=== PATIENT | female | born 1985 | race American Indian/Alaskan Native ===

== ENCOUNTER 2018-05-02 01:32 | Inpatient (IN) | payer SELFPAY ==
[2018-05-02] MEDS ORDERED: BICITRA PO ONE (01:45)
[2018-05-02] MEDS ORDERED: REGLAN IV ONE (01:45)
[2018-05-02] MEDS ORDERED: PEPCID IV ONE (01:45)
[2018-05-02] MEDS ORDERED: APRESOLINE IV PRN (01:49)
[2018-05-02] MEDS ORDERED: NORMODYNE IV ONE (01:49)
[2018-05-02] MEDS ORDERED: APRESOLINE ONE (01:52)
[2018-05-02] MEDS ORDERED: ANCEF/STERILE WATER 2 GM/20 ML 2 GM/20 ML SYRINGE IV NR (02:00)
[2018-05-02] MEDS ORDERED: LACTATED RINGERS 1,000 ML IV SCH ×2 (02:00)
[2018-05-02] MEDS ORDERED: PITOCin/NS 20 UNIT/1000ML DRIP 20 UNITS/1,000 ML BAG IV SCH ×2 (02:00→11:08)
[2018-05-02 02:16] LABS: Basophils # (Auto) 0.1 K/mm3 (0.0-0.1); Basophils % (Auto) 1.4 % (0.0-1.8); Eosinophils # (Auto) 0.1 K/mm3 (0.0-0.4); Hematocrit 44.5 % (30.3-42.9); Hemoglobin 14.5 gm/dl (10.1-14.3); Lymphocytes # (Auto) 2.6 K/mm3 (1.2-5.4); Lymphocytes % (Auto) 27.1 % (13.4-35.0); Mean Corpuscular HGB Conc 33 % (30-34); Mean Corpuscular Volume 70 fl (79-97); Monocytes # (Auto) 0.8 K/mm3 (0.0-0.8); Monocytes % (Auto) 8.2 % (0.0-7.3); Red Blood Count 6.34 M/mm3 (3.65-5.03); Red Cell Distribution Width 14.1 % (13.2-15.2)
[2018-05-02 02:20] LABS: Platelet Count 250 K/mm3 (140-440)
[2018-05-02 02:36] LABS: BUN/Creatinine Ratio 12; Blood Urea Nitrogen 7 mg/dL (7-17); Calcium 9.1 mg/dL (8.4-10.2); Hemolysis Index 128
[2018-05-02 02:46] LABS: Hepatitis C Virus Antibody Non-Reactive (NonReactive)
--- NOTE | 2018-05-02 02:46 | Ultrasound Report ---
FINAL REPORT PROCEDURE: US OB FOLLOW UP TECHNIQUE: Real-time limited sonographic examination was performed for evaluation of size, pos ition, heartbeat, fluid volume for each fetus with image documentation (1 or more fetuses). CPT 7681 5 HISTORY: efw, placentation, presentation COMPARISON: No prior studies are available for comparison. FINDINGS: MATERNAL Uterus: Within normal limits . Internal Os: Closed . FETUS IUP: Single living intrauterine . Position: Cephalic. Placental position: Anteriorly, without previa . Amniotic fluid volume: Normal . Heart rate and rhythm: 119 BPM, Regular . anatomic survey: Not performed on this study. MEASUREMENTS BPD: 9 centimeters. HC: 33.7 centimeter. AC: 34.1 centimeters. FL: 7.3 centimeter. Mean Gestational Age (composite criteria): 37 weeks 5 days. Ratio biometry: Normal . Estimated Weight: 3005 grams. Interval growth: No prior study. Estimated Due Date (earliest scan): 05/18/2018. IMPRESSION: 1. Single living intrauterine gestation at approximately 37 weeks 3 days. 2. EDC by US 05/18/2018.
[2018-05-02] MEDS ORDERED: NARCAN 2 MG/2 ML IV PRN (03:28)
[2018-05-02] MEDS ORDERED: METHERGINE IM ONE (03:30)
--- NOTE | 2018-05-02 03:30 | Anesthesia Day of Surgery ---
Anesthesia Day of Surgery - Day of Surgery Patient Examined: Yes Patient H&P Reviewed: Yes Patient is NPO: Yes Beta Blockers: No Cardiac Clearance: No Pulmonary Clearance: No Blaine's Test: N/A
--- NOTE | 2018-05-02 03:30 | Anesthesia Consultation ---
Anesthesia Consult and Med Hx - Airway Anesthetic Teeth Evaluation: Good ROM Head & Neck: Adequate Mental/Hyoid Distance: Adequate Mallampati Class: Class II Intubation Access Assessment: Probably Good - Pulmonary Exam CTA: Yes - Cardiac Exam Cardiac Exam: No Murmur - Pre-Operative Health Status ASA Pre-Surgery Classification: ASA3, Emergency Proposed Anesthetic Plan: Epidural
[2018-05-02] MEDS ORDERED: CYTOTEC ONE (03:31)
--- NOTE | 2018-05-02 03:45 | History and Physical Report ---
History of Present Illness Date of examination: 05/02/18 Date of admission: 05/02/18 02:48 Chief complaint: my water broke History of present illness: Pt is a 32 year old female BUTCH 05/18/18 by ultrasound today in triage at 37w5d who presents with rupture of membranes just after midnight. She reports irregular contractions. She has had no care for this . While being evaluated in triage, the patient noted headache and blood pressures 180/110s. She does have a history of one prior section. Past History Past Medical History: no pertinent history Past Surgical History: section Social history: no significant social history - Obstetrical History Expected Date of Delivery: 05/18/18 Actual Gestation: 37 Week(s) 5 Day(s) : 5 Para: 2 Hx # Term Pregnancies: 2 Number of Pregnancies: 0 Spontaneous Abortions: 2 Induced : 0 Number of Living Children: 2 Medications and Allergies Allergies Allergy/AdvReac Type Severity Reaction Status Date / Time No Known Allergies Allergy Verified 05/02/18 02:09 Active Meds: Active Medications Ephedrine Sulfate (Ephedrine Sulfate) 10 mg IV Q2M PRN PRN Reason: Hypotension Hydralazine HCl (Apresoline) 5 mg IV Q30MIN PRN PRN Reason: Hypertension Lactated Ringer's (Lactated Ringers) 1,000 mls @ 2,250 mls/hr IV PREOP JESUSITA Stop: 05/03/18 02:27 Oxytocin/Sodium Chloride (Pitocin/Ns 20 Unit/1000ml Drip) 20 units in 1,000 mls @ 0 mls/hr IV TITR JESUSITA Lactated Ringer's (Lactated Ringers) 1,000 mls @ 125 mls/hr IV DIRECT JESUSITA Naloxone HCl (Narcan 2 Mg/2 Ml) 0.2 mg IV Q5M PRN PRN Reason: Respiratory sedation Review of Systems All systems: negative - Physical Exam Breasts: Positive: deferred Cardiovascular: Regular rate Lungs: Positive: Clear to auscultation Abdomen: Positive: soft (gravid ) Genitourinary (Female): Positive: normal external genitalia Uterus: Positive: enlarged (gravid ) - Obstetrical FHR: category 2 Uterine Contraction Monitor Mode: External Cervical Dilatation: 2 (per RN ) Uterine Contraction Pattern: Irregular Uterine Tone Measurement Phase: Resting Uterine Contraction Intensity: Moderate Results Result Diagrams: 05/02/18 01:50 05/02/18 01:50 Abnormal lab results 05/02/18 05/02/18 Range/Units 01:50 01:50 RBC 6.34 H (3.65-5.03) M/mm3 Hgb 14.5 H (10.1-14.3) gm/dl Hct 44.5 H (30.3-42.9) % MCV 70 L (79-97) fl MCH 23 L (28-32) pg [place] % (Auto) 8.2 H (0.0-7.3) % Sodium 135 L (137-145) mmol/L Carbon Dioxide 20 L (22-30) mmol/L Creatinine 0.6 L (0.7-1.2) mg/dL All other labs normal. Assessment and Plan A: IUP at 37w5d Severe Preeclampsia Rupture of Membranes Previous x 1 No care P: No care panel PIH panel Prepare for repeat section and other indicated procedures.
[2018-05-02] MEDS ORDERED: MAGNESIUM SULFATE 40GM/1000ML 40 GM/1,000 ML BAG IV ONE (03:53)
[2018-05-02] MEDS ORDERED: MAGNESIUM SULFATE 4GM/100ML 4 GM/100 ML BAG IV ONE ×2 (03:54)
--- NOTE | 2018-05-02 03:54 | Procedure Note ---
OB Delivery Note - Delivery Date of Delivery: 05/02/18 Surgeon: BINTA GUZMAN Estimated blood loss: 500cc - Vaginal Delivery presentation: vertex Delivery position: OA Intrapartum events: PROM->1hr before delivery, preeclampsia, precipitous labor- <3hr Delivery induction: none Delivery monitor: external FHT Route of delivery: Delivery placenta: spontaneous Delivery cord: nuchal cord Episiotomy: none Delivery laceration: 2nd degree Delivery repair: vicryl Anesthesia: epidural Delivery comments: While pt in operating room being prepped for section, she progressed to complete/complete/+3 and pushed to deliver a viable male over intact perineum under regional anesthesia. Head delivered in JEREMY position, tight nuchal cord x 1 was reduced, followed by delivery of shoulders and body. was bulb suctioned at delivery. Cord clamped and cut and handed to NICU staff in attendance. Cord blood collected. Placenta delivered spontaneously. Vagina and perineum explored. Second degree perineal laceration repaired with 2-0 Vicryl in a standard fashion. EBL 500 mL. - A at 1 minute: 8 at 5 minutes: 9 Gender: Male (3918g (8lb 10 oz) @ 0322 am)
[2018-05-02] MEDS ORDERED: MAGNESIUM SULFATE 40GM/1000ML 40 GM/1,000 ML BAG IV SCH (04:00)
[2018-05-02] MEDS ORDERED: TYLENOL PO ONE (04:06)
[2018-05-02] MEDS ORDERED: TYLENOL ONE (04:09)
[2018-05-02 05:14] LABS: INR 1.3 (0.87-1.13)
[2018-05-02 05:15] LABS: Partial Thromboplastin Time 45.6 Sec. (24.2-36.6)
[2018-05-02 06:53] LABS: Bilirubin,Urine NEG (Negative); Blood,Urine MOD (Negative); Color,Urine Yellow (Yellow); Mucus,Urine FEW /HPF; Urobilinogen,Urine < 2.0 mg/dL (<2.0)
[2018-05-02 07:03] LABS: Amphetamine Screen,Urine PRESUMPTIVE NEGATIVE; Benzodiazepines Screen,Urine PRESUMPTIVE NEGATIVE; Cannabinoid Screen,Urine PRESUMPTIVE NEGATIVE; Cocaine Screen,Urine PRESUMPTIVE NEGATIVE; Methadone Screen,Urine PRESUMPTIVE NEGATIVE; Opiate Screen,Urine PRESUMPTIVE NEGATIVE
[2018-05-02] MEDS ORDERED: APRESOLINE IV SCH (08:00)
[2018-05-02] MEDS ORDERED: FIORICET PO PRN (08:56)
[2018-05-02] MEDS ORDERED: PHENERGAN PR PRN (11:08)
[2018-05-02] MEDS ORDERED: ZOFRAN IV PRN (11:08)
[2018-05-02] MEDS ORDERED: TYLENOL PO PRN (11:08)
[2018-05-02] MEDS ORDERED: SODIUM CHLORIDE FLUSH SYRINGE 10 ML IV NR (11:08)
[2018-05-02] MEDS ORDERED: NORCO 5/325 PO PRN (11:08)
[2018-05-02] MEDS ORDERED: DERMOPLAST TP PRN (11:08)
[2018-05-02] MEDS ORDERED: BENADRYL PO PRN (11:08)
[2018-05-02] MEDS ORDERED: MILK OF MAGNESIA PO PRN (11:08)
[2018-05-02] MEDS ORDERED: DULCOLAX PR PRN (11:08)
[2018-05-02] MEDS ORDERED: LANSINOH TP PRN ×2 (11:08)
[2018-05-02] MEDS ORDERED: PHENERGAN PO PRN (11:08)
[2018-05-02] MEDS ORDERED: TUCKS PAD TP PRN (11:08)
--- NOTE | 2018-05-02 11:10 | Event Note ---
Date: 05/02/18 Pt with persistent headache despite Tylenol and Fioricet. Head CT scan ordered. Coags postop slightly elevated. Repeat Hemoglobin, hematocrit, coags and mag level now.
[2018-05-02 11:58] LABS: Hematocrit 41.2 % (30.3-42.9); Hemoglobin 13.3 gm/dl (10.1-14.3)
[2018-05-02 12:08] LABS: INR 0.9 (0.87-1.13)
--- NOTE | 2018-05-02 13:04 | Cat Scan Report ---
FINAL REPORT EXAM: CT HEAD/BRAIN WO CON HISTORY: s/p delivery this AM, Severe Preeclampsia, COMPARISON: None. TECHNIQUE: Multiple contiguous axial images were obtained from the skullbase to the vertex without a dministration of IV contrast. FINDINGS: There is normal brain volume for the patient's age. There is normal luis-white differentiation. There is no parenchymal hemorrhage or extra-axial fluid collection. There is no mass or mass effect. There is no acute territorial infarct. There is no skull fracture. The paranasal sinuses and mastoid air c ells are clear. The bilateral orbits are intact. IMPRESSION: No acute intracranial abnormality.
[2018-05-02] MEDS: FEOSOL PO SCH (13:17)
[2018-05-02] MEDS: COLACE PO SCH (13:17)
[2018-05-02] MEDS: IBUPROFEN PO SCH (13:17)
[2018-05-02] MEDS: NORMODYNE PO SCH ×2 (13:18→21:55)
[2018-05-03] MEDS: COLACE PO SCH ×3 (00:25→21:59)
[2018-05-03] MEDS: FEOSOL PO SCH ×4 (00:25→22:00)
[2018-05-03] MEDS: IBUPROFEN PO SCH ×3 (00:25→22:02)
[2018-05-03] MEDS ORDERED: BOOSTRIX IM ONE (03:56)
[2018-05-03] MEDS ORDERED: M-M-R II VACCINE SUB-Q ONE (03:56)
--- NOTE | 2018-05-03 08:47 | Progress Note ---
Assessment and Plan A/P PPD s/p close monitor of vs given methergine for bleeding continue postop orders Subjective - Subjective Date of service: 05/03/18 Principal diagnosis: s/p Patient reports: appetite normal, voiding normally, pain well controlled, flatus, ambulating normally Objective - Vital Signs Latest vital signs: Vital Signs Temp Pulse Resp BP BP Pulse Ox 05/03/18 05:12 18 05/03/18 05:00 98.7 F 74 18 154/93 05/03/18 03:42 91 H 99 05/03/18 03:37 83 99 05/03/18 03:35 85 134/63 05/03/18 03:32 90 99 05/03/18 03:27 91 H 99 05/03/18 03:22 82 98 05/03/18 03:20 82 125/64 05/03/18 03:17 83 98 05/03/18 03:12 88 99 05/03/18 03:07 86 99 05/03/18 03:05 85 124/62 05/03/18 03:02 91 H 98 05/03/18 03:00 97.8 F 95 H 20 122/63 98 05/03/18 02:57 82 98 05/03/18 02:52 87 98 05/03/18 02:50 95 H 122/63 05/03/18 02:47 86 98 05/03/18 02:42 88 99 05/03/18 02:37 89 100 05/03/18 02:35 85 123/61 05/03/18 02:32 92 H 99 05/03/18 02:27 92 H 99 05/03/18 02:22 88 99 05/03/18 02:20 88 137/62 05/03/18 02:17 92 H 98 05/03/18 02:12 101 H 99 05/03/18 02:07 93 H 99 05/03/18 02:05 90 144/88 05/03/18 02:02 94 H 98 05/03/18 01:57 90 99 05/03/18 01:52 90 99 05/03/18 01:50 90 147/93 05/03/18 01:47 94 H 99 05/03/18 01:42 91 H 98 05/03/18 01:37 90 99 01/07/19 01:35 84 132/74 05/03/18 01:32 98 H 98 05/03/18 01:27 94 H 98 05/03/18 01:22 84 97 05/03/18 01:20 90 114/63 05/03/18 01:17 85 98 05/03/18 01:12 86 97 05/03/18 01:07 91 H 98 05/03/18 01:05 86 115/58 05/03/18 01:02 85 97 05/03/18 00:57 84 97 05/03/18 00:52 86 98 05/03/18 00:50 85 111/56 05/03/18 00:47 84 97 05/03/18 00:42 86 98 05/03/18 00:37 84 97 05/03/18 00:35 83 110/58 05/03/18 00:32 89 100 05/03/18 00:27 82 98 05/03/18 00:22 89 97 05/03/18 00:20 91 H 117/61 05/03/18 00:17 103 H 98 05/03/18 00:14 86 93 05/03/18 00:12 98 H 98 05/03/18 00:08 95 H 87 05/03/18 00:07 85 96 05/03/18 00:05 88 117/57 05/03/18 00:02 88 97 05/02/18 23:57 92 H 98 05/02/18 23:52 87 96 05/02/18 23:50 86 128/66 05/02/18 23:47 88 97 05/02/18 23:42 83 97 05/02/18 23:37 89 99 05/02/18 23:35 91 H 137/65 05/02/18 23:32 99 H 99 05/02/18 23:27 87 99 05/02/18 23:26 92 H 94 05/02/18 23:22 83 98 05/02/18 23:20 91 H 128/62 05/02/18 23:17 88 98 05/02/18 23:12 87 97 05/02/18 23:07 85 97 05/02/18 23:05 98 H 134/61 05/02/18 23:02 89 97 05/02/18 23:00 97.5 F L 98 H 18 134/65 05/02/18 22:57 89 97 05/02/18 22:52 90 97 05/02/18 22:50 88 126/71 05/02/18 22:47 88 97 05/02/18 22:42 89 97 05/02/18 22:37 85 98 05/02/18 22:35 90 140/79 05/02/18 22:32 99 H 98 05/02/18 22:27 89 97 05/02/18 22:22 90 97 05/02/18 22:20 89 136/69 05/02/18 22:17 89 98 05/02/18 22:12 94 H 98 05/02/18 22:07 98 H 99 05/02/18 22:05 96 H 141/87 05/02/18 22:02 102 H 98 05/02/18 21:57 100 H 98 05/02/18 21:52 87 99 05/02/18 21:50 88 140/87 05/02/18 21:47 94 H 98 05/02/18 21:42 103 H 99 05/02/18 21:37 99 H 99 05/02/18 21:35 90 148/90 05/02/18 21:32 96 H 99 05/02/18 21:27 94 H 99 05/02/18 21:22 97 H 99 05/02/18 21:20 88 139/87 05/02/18 21:17 101 H 98 05/02/18 21:12 107 H 98 05/02/18 21:07 98 H 98 05/02/18 21:05 96 H 152/91 05/02/18 21:02 101 H 98 05/02/18 21:01 103 H 159/87 05/02/18 20:57 103 H 98 05/02/18 20:52 99 H 99 05/02/18 20:50 96 H 212/111 05/02/18 20:47 100 H 99 05/02/18 20:42 95 H 98 05/02/18 20:37 85 99 05/02/18 20:35 80 154/91 05/02/18 20:32 96 H 99 05/02/18 20:27 84 99 05/02/18 20:22 83 98 05/02/18 20:20 82 149/89 05/02/18 20:17 84 99 05/02/18 20:12 85 98 05/02/18 20:07 85 99 05/02/18 20:05 83 144/86 05/02/18 20:02 89 98 05/02/18 19:57 83 99 05/02/18 19:52 84 99 05/02/18 19:50 83 144/96 05/02/18 19:47 90 99 05/02/18 19:42 86 99 05/02/18 19:37 90 100 05/02/18 19:35 84 147/98 05/02/18 19:32 86 99 05/02/18 19:27 86 99 05/02/18 19:22 84 100 05/02/18 19:20 83 129/68 05/02/18 19:17 85 100 05/02/18 19:13 81 134/79 05/02/18 19:12 88 98 05/02/18 19:10 97.9 F 91 H 134/79 99 05/02/18 19:05 85 135/81 05/02/18 18:50 85 128/75 05/02/18 18:35 81 133/77 05/02/18 18:20 77 129/62 05/02/18 18:05 79 135/68 05/02/18 17:50 82 130/63 05/02/18 17:35 94 H 145/68 05/02/18 17:20 85 140/63 05/02/18 17:05 99 H 148/61 05/02/18 16:50 85 146/75 05/02/18 13:35 106 H 149/97 05/02/18 13:21 121 H 151/97 05/02/18 13:18 151/97 05/02/18 12:00 97.2 F L 05/02/18 11:50 96 H 155/96 05/02/18 11:35 90 161/96 05/02/18 11:05 88 164/100 05/02/18 10:50 94 H 135/81 05/02/18 10:35 96 H 150/79 05/02/18 10:20 95 H 150/83 05/02/18 10:05 96 H 153/85 05/02/18 09:50 104 H 153/81 05/02/18 09:35 105 H 159/86 05/02/18 09:20 107 H 151/89 05/02/18 09:05 112 H 143/90 Intake and Output 05/02/18 05/03/18 05/03/18 23:59 07:59 15:59 Intake Total 1300 Output Total 3200 2000 Balance -3200 -700 Intake: IV 1000 MAGNESIUM SULFATE 40GM/ 1000 1000ML 40 gm In 1,000 ml @ 2 GM/HR 50 mls/hr IV DIRECT JESUSITA Rx#:[id number] Intake, Free Water 300 Output: Urine 3200 2000 Indwelling Catheter 3200 2000 Other: Total, Output Amount 1400 1000 - Exam Breasts: Present: normal Cardiovascular: Present: Regular rate, Normal S1 Lungs: Present: Clear to auscultation, Normal air movement Abdomen: Present: normal appearance, soft, normal bowel sounds. Absent: distention, tenderness, guarding Vulva: both: normal Uterus: Present: normal, firm, fundal height below umbilicus. Absent: bogginess, tenderness Extremities: Present: normal Deep Tendon Reflex Grade: Normal +2 - Labs Labs: Abnormal lab results 05/02/18 05/02/18 05/03/18 Range/Units 11:41 19:25 01:25 Magnesium 4.20 H 4.60 H 5.10 H (1.7-2.3) mg/dL
[2018-05-03] MEDS: METHERGINE PO SCH ×2 (08:50→22:00)
[2018-05-03] MEDS: NORMODYNE PO SCH ×3 (08:50→22:00)
[2018-05-03] MEDS ORDERED: PITOCin/NS 20 UNIT/1000ML DRIP 20,000 MILLIUNITS/1,000 ML BAG IV ONE (09:22)
[2018-05-03] MEDS ORDERED: PITOCin/NS 30 UNIT/500ML 30,000 MILLIUNITS/500 ML BAG IV ONE (09:23)
[2018-05-03 09:30] LABS: Hematocrit 34.7 % (30.3-42.9); Hemoglobin 11.1 gm/dl (10.1-14.3)
--- NOTE | 2018-05-03 09:48 | Event Note ---
Date: 05/03/18 Was called to assess the patient bleeding Patient lying in bed VSS CBC 13-11 cancelled methergine order patient is preeclamptic s/p mag will order another h/h type and screen coags hemabate and pitocin for bleeding uterus firm below umbilicus continue close monitor
[2018-05-03] MEDS ORDERED: HEMABATE IM ONE ×3 (09:49→09:53)
[2018-05-03] MEDS ORDERED: PERCOCET 5/325 PO PRN (10:30)
[2018-05-03] MEDS ORDERED: PITOCin/NS 20 UNIT/1000ML DRIP 20 UNITS/1,000 ML BAG IV SCH (11:00)
[2018-05-03] MEDS ORDERED: NACL 0.9% IV SCH (11:00)
[2018-05-03] MEDS ORDERED: PITOCIN IV SCH (11:00)
[2018-05-03] MEDS ORDERED: MORPHINE IM ONE (11:02)
[2018-05-03] MEDS ORDERED: NACL 0.9% 1000 ML IV SCH (14:00)
[2018-05-03 14:55] LABS: Basophils # (Auto) 0.1 K/mm3 (0.0-0.1); Basophils % (Auto) 0.6 % (0.0-1.8); Eosinophils # (Auto) 0.1 K/mm3 (0.0-0.4); Eosinophils % (Auto) 0.5 % (0.0-4.3); Hematocrit 35.1 % (30.3-42.9); Hemoglobin 11.4 gm/dl (10.1-14.3); Lymphocytes # (Auto) 1.4 K/mm3 (1.2-5.4); Lymphocytes % (Auto) 7.3 % (13.4-35.0); Mean Corpuscular HGB Conc 32 % (30-34); Mean Corpuscular Volume 70 fl (79-97); Monocytes # (Auto) 0.7 K/mm3 (0.0-0.8); Monocytes % (Auto) 3.7 % (0.0-7.3); Platelet Count 197 K/mm3 (140-440); Red Cell Distribution Width 14.1 % (13.2-15.2)
[2018-05-03 15:14] LABS: Alanine Aminotransferase 63 units/L (7-56); Albumin 2.2 g/dL (3.9-5); BUN/Creatinine Ratio 14; Blood Urea Nitrogen 7 mg/dL (7-17); Calcium 7.1 mg/dL (8.4-10.2); Hemolysis Index 15
--- NOTE | 2018-05-03 18:54 | Ultrasound Report ---
FINAL REPORT EXAM: US PELVIC COMPLETE HISTORY: please assess uterus for retained POC TECHNIQUE: Transabdominal grayscale and color-flow imaging of the pelvis was performed. Comparison: Ob ultrasound dated May 02, 2018 FINDINGS: The uterus measures 19.1 centimeters x 10.4 centimeters x 6.2 centimeters. There is increased density of the contents of the endometrium suggestive of blood products. Endometrial thickness measures 18 millimeters. There are no abnormal collections in the uterus and no evidence of increased vascularity on color-cecil w imaging to suggest the presence of retained products of conception. The left ovary measures 4.6 centimeters x 4.2 centimeters x 3.2 centimeters and contains an approxima tely 3 centimeter complex cyst with internal echoes. The right ovary is not imaged. No free fluid is demonstrated in the pelvis. IMPRESSION: 1. No ultrasound evidence of retained products of conception. 2. Small complex cyst left ovary.
[2018-05-03 20:07] LABS: Basophils # (Auto) 0.2 K/mm3 (0.0-0.1); Basophils % (Auto) 1.2 % (0.0-1.8); Eosinophils # (Auto) 0.2 K/mm3 (0.0-0.4); Eosinophils % (Auto) 1.3 % (0.0-4.3); Hematocrit 31.5 % (30.3-42.9); Lymphocytes # (Auto) 1.6 K/mm3 (1.2-5.4); Lymphocytes % (Auto) 10.6 % (13.4-35.0); Mean Corpuscular HGB Conc 32 % (30-34); Mean Corpuscular Volume 71 fl (79-97); Monocytes # (Auto) 0.9 K/mm3 (0.0-0.8); Monocytes % (Auto) 5.9 % (0.0-7.3); Platelet Count 205 K/mm3 (140-440); Red Blood Count 4.47 M/mm3 (3.65-5.03); Red Cell Distribution Width 14.2 % (13.2-15.2)
[2018-05-03 20:29] LABS: Alanine Aminotransferase 55 units/L (7-56); Albumin 2.2 g/dL (3.9-5); BUN/Creatinine Ratio 11; Blood Urea Nitrogen 8 mg/dL (7-17); Calcium 6.9 mg/dL (8.4-10.2); Hemolysis Index 25
[2018-05-04] MEDS: METHERGINE PO SCH (05:24)
[2018-05-04] MEDS: IBUPROFEN PO SCH (05:25)
--- NOTE | 2018-05-04 08:38 | Progress Note ---
Assessment and Plan - Patient Problems (1) No care in current Current Visit: Yes Status: Acute Plan to address problem: clinically improved consider discharge home today Subjective - Subjective Date of service: 05/04/18 Principal diagnosis: s/p Interval history: Patient states vaginal bleeding is improved. Blood pressures have been labile but improving. She denies any preeclampsia symptoms. Patient reports: appetite normal, voiding normally, pain well controlled [place]: doing well Objective - Vital Signs Latest vital signs: Vital Signs Temp Pulse Resp BP BP Pulse Ox 05/04/18 07:34 98.9 F 79 20 147/87 95 05/03/18 22:00 80 120/75 05/03/18 16:18 98.5 F 87 18 132/85 100 05/03/18 12:57 98.5 F 85 18 141/98 99 05/03/18 10:48 98.4 F 77 18 152/100 99 05/03/18 09:05 98.7 F 73 18 157/99 100 05/03/18 08:52 98.3 F 78 18 156/103 100 05/03/18 08:50 76 157/99 Intake and Output 05/03/18 05/04/18 05/04/18 22:59 06:59 14:59 Intake Total 560 400 Output Total 625 Balance -65 400 Intake: Oral 200 400 Intake, Free Water 360 Output: Urine 625 Indwelling Catheter 625 Other: Total, Intake Amount 200 400 Total, Output Amount 625 # Voids Indwelling Catheter 1 3 - Exam Uterus: Present: normal, firm - Labs Labs: Abnormal lab results 05/03/18 05/03/18 05/03/18 Range/Units 14:45 14:45 19:47 WBC 18.4 H 15.5 H (4.5-11.0) K/mm3 Hgb 10.0 L (10.1-14.3) gm/dl MCV 70 L 71 L (79-97) fl MCH 23 L 23 L (28-32) pg Lymph % (Auto) 7.3 L 10.6 L (13.4-35.0) % Cecil # 0.9 H (0.0-0.8) K/mm3 Baso # 0.2 H (0.0-0.1) K/mm3 Seg Neutrophils % 87.9 H 81.0 H (40.0-70.0) % Seg Neutrophils # 16.2 H 12.5 H (1.8-7.7) K/mm3 Sodium (137-145) mmol/L Creatinine 0.5 L (0.7-1.2) mg/dL Glucose 124 H (65-100) mg/dL Calcium 7.1 L D (8.4-10.2) mg/dL AST 64 H (5-40) units/L ALT 63 H (7-56) units/L Alkaline Phosphatase 346 H (35-129) units/L Total Protein 5.5 L (6.3-8.2) g/dL Albumin 2.2 L (3.9-5) g/dL 05/03/18 Range/Units 19:47 WBC (4.5-11.0) K/mm3 Hgb (10.1-14.3) gm/dl MCV (79-97) fl MCH (28-32) pg Lymph % (Auto) (13.4-35.0) % Cecil # (0.0-0.8) K/mm3 Baso # (0.0-0.1) K/mm3 Seg Neutrophils % (40.0-70.0) % Seg Neutrophils # (1.8-7.7) K/mm3 Sodium 135 L (137-145) mmol/L Creatinine (0.7-1.2) mg/dL Glucose 108 H (65-100) mg/dL Calcium 6.9 L (8.4-10.2) mg/dL AST 54 H (5-40) units/L ALT (7-56) units/L Alkaline Phosphatase 290 H (35-129) units/L Total Protein 4.8 L (6.3-8.2) g/dL Albumin 2.2 L (3.9-5) g/dL
--- NOTE | 2018-05-04 08:42 | Discharge Summary ---
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 Patient was being set up for repeat when she expressed the urge to push and delivered vaginally. complicated preeclampsia for which the patient received iv magnesium. Condition at discharge: Good Disposition: DC-01 TO HOME OR SELFCARE - Discharge Diagnoses (1) No care in current Status: Acute Plan - Discharge Medications Prescriptions: HYDROcodone/APAP 5-325 [[facility] 5/325] 1 each PO Q6HR PRN #20 tablet PRN Reason: Pain Ibuprofen [Motrin] 800 mg PO Q8HR PRN #60 tablet PRN Reason: Pain, Mild (1-3) - Provider Discharge Summary Activity: no sex for 6 weeks, no heavy lifting 4 weeks, no strenuous exercise Diet: routine Instructions: routine Additional instructions: [] Smoking cessation referral if applicable(refer to patient education folder for contact #) [] Refer to [facility] Booklet Call your doctor immediately for: * Fever > 100.5 * Heavy vaginal bleeding ( >1 pad per hour) * Severe persistent headache * Shortness of breath * Reddened, hot, painful area to leg or breast * schedule followup with [facility] in one week * [address] [facility] * [facility] [id number] * - Follow up plan
[2018-05-04] MEDS: FEOSOL PO SCH (11:37)
[2018-05-04] MEDS: COLACE PO SCH (11:37)
[2018-05-04] MEDS: NORMODYNE PO SCH (11:38)
[2018-05-04 16:58] VITALS: BP 135/84
== END 2018-05-04 19:56 | disposition home or self-care (01) | DRG 805 ==
LOC: TRG 01:32 → UNDOADMIN 02:48 → LD 02:48 → OB 05-03 04:54
PROVIDERS: ADMIT Obstetrics & Gynecology; ATTEND Obstetrics & Gynecology
PROC: 10E0XZZ Delivery of Products of Conception, External Approach (ICD-10-PCS; principal; 2018-05-02)
PROC: 0KQM0ZZ Repair Perineum Muscle, Open Approach (ICD-10-PCS; 2018-05-02)
PROC: 3E0R3BZ Introduction of Anesthetic Agent into Spinal Canal, Percutaneous Approach (ICD-10-PCS; 2018-05-02)
PROC: 00HU33Z Insertion of Infusion Device into Spinal Canal, Percutaneous Approach (ICD-10-PCS; 2018-05-02)
DX: O42.02 Full-term premature rupture of membranes, onset of labor within 24 hours of rupture (principal); O14.13 Severe pre-eclampsia, third trimester; Z37.0 Single live birth; O72.1 Other immediate postpartum hemorrhage; O14.14 Severe pre-eclampsia complicating childbirth; O62.3 Precipitate labor; O70.1 Second degree perineal laceration during delivery; O69.1XX0 Labor and delivery complicated by cord around neck, with compression, not applicable or unspecified; O34.211 Maternal care for low transverse scar from previous cesarean delivery; Z3A.37 37 weeks gestation of pregnancy; R51 Headache
CPT/HCPCS: 36415; 70450; 76816; 76856; 80048; 80053; 80307; 81001; 83735; 84550; 85014; 85018; 85025; 85610; 85660; 85730; 86592; 86706; 86762; 86803; 86850; 86900; 86901; 87806; 88305; 88307; G0378; J0360; J0690; J2210; J2270; J2405; J2590; J2765; J3475; J7030; J7120

== ENCOUNTER 2019-03-10 15:23 | Emergency (ER) | payer OTHER ==
[2019-03-10 15:32] VITALS: BP 142/92
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
[2019-03-10 18:38] LABS: Bilirubin,Urine NEG (Negative); Blood,Urine NEG (Negative); Color,Urine Yellow (Yellow); Hyaline Casts,Urine 1 /LPF; Mucus,Urine FEW /HPF; Urobilinogen,Urine < 2.0 mg/dL (<2.0)
[2019-03-10 18:40] LABS: HCG Qualitative,Urine Negative (Negative)
[2019-03-10] MEDS ORDERED: HYDROcodone/ACETAMINOPHEN 5-325 MG TAB PO ONE (18:46)
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
== END 2019-03-10 22:00 | disposition home or self-care (01) ==
LOC: ED 15:23
DX: S39.012A Strain of muscle, fascia and tendon of lower back, initial encounter (principal); S39.011A Strain of muscle, fascia and tendon of abdomen, initial encounter; R07.89 Other chest pain; Z79.899 Other long term (current) drug therapy; V49.49XA Driver injured in collision with other motor vehicles in traffic accident, initial encounter; Y93.89 Activity, other specified; Y92.410 Unspecified street and highway as the place of occurrence of the external cause; Y99.8 Other external cause status
CPT/HCPCS: 71046; 72100; 74176; 81001; 81025

== ENCOUNTER 2019-12-10 09:14 | Emergency (ER) | payer OTHER ==
[2019-12-10 09:27] VITALS: BP 147/82
--- NOTE | 2019-12-10 10:09 | Emergency Department Report ---
ED General Adult HPI - General Chief complaint: Nausea/Vomiting/Diarrhea Stated complaint: DIZZY, N/V Time Seen by Provider: 12/10/19 09:51 Source: patient Mode of arrival: Ambulatory Limitations: No Limitations - History of Present Illness Initial comments: This pleasant 34-year-old female presents the emergency department chief complaint of cough, fever, shortness of breath, no taste and no smell over the past 6 days. 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 She denies any known past medical history, current medication use or known allergies to medications. She does report multiple exposures to COVID-19 is concerned this may be the cause of her symptoms. She denies any associated chest pain, hemoptysis, lower extremity edema, chills, night sweats, headache, dizziness, blurry vision. She does report associated diarrhea. She denies nausea or vomiting. - Related Data Previous Rx's Medication Instructions Recorded Last Taken Type HYDROcodone/APAP 5-325 [[place] 1 each PO Q6HR PRN #20 tablet 05/04/18 Unknown Rx 5/325] Ibuprofen [Motrin] 800 mg PO Q8HR PRN #60 tablet 05/04/18 Unknown Rx Cyclobenzaprine [Flexeril] 10 mg PO TID PRN #30 tablet 03/10/19 Unknown Rx Naproxen [Naprosyn] 500 mg PO BID PRN #30 tablet 03/10/19 Unknown Rx Albuterol Sulfate [Proventil Hfa] 6.7 gm IH Q4HR PRN #1 hfa.aer.ad 12/10/19 Unknown Rx Azithromycin [Zithromax Z-CHILO] 0 mg PO DAILY #1 tab 12/10/19 Unknown Rx Prednisone [predniSONE 5 mg (6-Day 5 mg PO .TAPER #1 tab.ds.pk 12/10/19 Unknown Rx Pack, 21 Tabs)] Allergies Allergy/AdvReac Type Severity Reaction Status Date / Time No Known Allergies Allergy Verified 05/02/18 02:09 ED Review of Systems ROS: Stated complaint: DIZZY, N/V Other details as noted in HPI Comment: All other systems reviewed and negative Constitutional: fever, malaise. denies: chills Eyes: denies: eye pain, eye discharge, vision change ENT: congestion. denies: ear pain, throat pain Respiratory: see HPI, cough, shortness of breath. denies: wheezing Cardiovascular: denies: chest pain, palpitations Endocrine: no symptoms reported Gastrointestinal: diarrhea. denies: abdominal pain, nausea Genitourinary: denies: urgency, dysuria, discharge Musculoskeletal: as per HPI, myalgia. denies: back pain, joint swelling, arthralgia Skin: denies: rash, lesions Neurological: denies: headache, weakness, paresthesias Psychiatric: denies: anxiety, depression Hematological/Lymphatic: denies: easy bleeding, easy bruising ED Past Medical Hx - Past Medical History Previous Medical History?: Yes Hx Hypertension: Yes (during ) Hx Congestive Heart Failure: No Hx Diabetes: No Hx Deep Vein Thrombosis: No Hx Renal Disease: No Hx Sickle Cell Disease: No Hx Seizures: No Hx Asthma: No Hx COPD: No - Surgical History Past Surgical History?: No - Social History Smoking Status: Never Smoker Substance Use Type: Alcohol - Medications Home Medications: Home Medications Medication Instructions Recorded Confirmed Last Taken Type HYDROcodone/APAP 5-325 [[place] 1 each PO Q6HR PRN #20 tablet 05/04/18 Unknown Rx 5/325] Ibuprofen [Motrin] 800 mg PO Q8HR PRN #60 tablet 05/04/18 Unknown Rx Cyclobenzaprine [Flexeril] 10 mg PO TID PRN #30 tablet 03/10/19 Unknown Rx Naproxen [Naprosyn] 500 mg PO BID PRN #30 tablet 03/10/19 Unknown Rx Albuterol Sulfate [Proventil Hfa] 6.7 gm IH Q4HR PRN #1 hfa.aer.ad 12/10/19 Unknown Rx Azithromycin [Zithromax Z-CHILO] 0 mg PO DAILY #1 tab 12/10/19 Unknown Rx Prednisone [predniSONE 5 mg (6-Day 5 mg PO .TAPER #1 tab.ds.pk 12/10/19 Unknown Rx Pack, 21 Tabs)] ED Physical Exam - General Limitations: No Limitations General appearance: alert, in no apparent distress - Head Head exam: Present: atraumatic, normocephalic - Eye Eye exam: Present: normal appearance, PERRL, EOMI Pupils: Present: normal accommodation - ENT ENT exam: Present: normal exam, normal orophraynx, mucous membranes moist, TM's normal bilaterally - Neck Neck exam: Present: normal inspection, full ROM. Absent: tenderness, meningismus - Respiratory Respiratory exam: Present: normal lung sounds bilaterally. Absent: respiratory distress, wheezes, rales, rhonchi, stridor, chest wall tenderness, accessory muscle use, decreased breath sounds - Cardiovascular Cardiovascular Exam: Present: regular rate, normal rhythm, normal heart sounds. Absent: systolic murmur, diastolic murmur, rubs, gallop - GI/Abdominal GI/Abdominal exam: Present: soft, normal bowel sounds. Absent: distended, tenderness, rebound, rigid - Extremities Exam Extremities exam: Present: normal inspection, full ROM, normal capillary refill. Absent: tenderness, calf tenderness (Negative posterior calf tenderness, negative Homans sign bilaterally) - Back Exam Back exam: Present: normal inspection, full ROM. Absent: tenderness, CVA tenderness (R), CVA tenderness (L) - Neurological Exam Neurological exam: Present: alert, oriented X3, normal gait - Psychiatric Psychiatric exam: Present: normal affect, normal mood - Skin Skin exam: Present: warm, dry, intact, normal color. Absent: rash ED Course Vital Signs 12/10/19 09:24 Temperature 98.2 F Pulse Rate 76 Respiratory 16 Rate Blood Pressure 147/82 O2 Sat by Pulse 100 Oximetry ED Medical Decision Making - Medical Decision Making Patient is nontoxic in no acute distress. Vitals are stable. She is PERC negative and a low risk by wells criteria making PE unlikely. She had normal breath sounds and an O2 saturation of 100% on room air making a pneumonia less likely. She had no lower extremity edema and no posterior calf tenderness with a low Wells risk for DVT with no clinical symptoms of DVT. I have a high suspicion the patient may have COVID-19 and recommended self quarantine at home for the recommended 10 days after symptom onset by the CDC. Patient was instructed to follow-up with her primary care doctor for reevaluation. She reports she is unsure if she is or not so we will run a test and recommended inhaler and steroid pack as well as azithromycin. She verbalized understanding the diagnosis, treatment plan and follow-up instructions and all of her questions were answered. - Differential Diagnosis covid-19, pneumonia, viral syndrome Critical care attestation.: If time is entered above; I have spent that time in minutes in the direct care of this critically ill patient, excluding procedure time. ED Disposition Clinical Impression: Suspected COVID-19 virus infection Disposition: TO HOME OR SELFCARE Is pt being admited?: No Condition: Stable Instructions: COVID-19 Prescriptions: Prednisone [predniSONE 5 mg (6-Day Pack, 21 Tabs)] 5 mg PO .TAPER #1 tab.ds.pk Albuterol Sulfate [Proventil Hfa] 6.7 gm IH Q4HR PRN #1 hfa.aer.ad PRN Reason: Wheezing Azithromycin [Zithromax Z-CHILO] 0 mg PO DAILY #1 tab Referrals: PRIMARY CARE, [Primary Care Provider] - 3-5 Days [facility] [Provider Group] - 3-5 Days Forms: Work/School Release Form(ED) Time of Disposition: 10:11
[2019-12-10 10:48] LABS: HCG Qualitative,Urine Negative (Negative)
== END 2019-12-10 11:00 | disposition home or self-care (01) ==
LOC: ED 09:14
DX: R05 Cough (principal); Z20.828 Contact with and (suspected) exposure to other viral communicable diseases; R50.9 Fever, unspecified; R06.02 Shortness of breath; I10 Essential (primary) hypertension; Z79.1 Long term (current) use of non-steroidal anti-inflammatories (NSAID); Z79.2 Long term (current) use of antibiotics; Z79.899 Other long term (current) drug therapy
CPT/HCPCS: 81025